=== PATIENT | male | born 1940 | race Caucasian/White ===

== ENCOUNTER → 2017-04-10 | Day surgery (SDC) | payer OTHER, BC ==
[~2017-04-10] VITALS: Ht 180.3 cm; Wt 76.5 kg
[~2017-04-10] MED LIST: AMLO10TA2 PO; ASCA500 PO; ASPI81TA28 PO; B-COCAP28 PO; CEFAZOLIN 1000MG/55 ML D5W IV SCH; CHOL100010 PO; CINA0.42 PO; CLOP1TAB5 PO; D5W AND 1/4NSS 1,000 ML IV SCH; FENTANYL CITRATE INJ 50 MCG/1 ML 2 ML VIAL IV ONE; FENTANYL CITRATE INJ 50 MCG/1 ML 2 ML VIAL ONE; GARL400T4 PO; GARL400T5 PO; HEPARIN SOD (PORCINE) 5000 UNIT/ML 1 ML VIAL ONE; HMLI SC; HydrALAZINE HCL 20 MG/ML VIAL IV. ONE; HydrALAZINE HCL 20 MG/ML VIAL ONE; INSDGI SC; LATA0.009 OPB; LCTS240 PO; LIDOCAINE HCL 1% 20 ML VIAL INJ ONE; LISI-729 PO; LPR25 PO; MELA1TAB3 PO; MELA1TAB5 PO; MIDAZOLAM HCL 1 MG/ML 2ML VIAL IV ONE; MIDAZOLAM HCL 1 MG/ML 2ML VIAL ONE; NTRGSL/4 UT; OMEG10007 PO; OXYC-57 PO; OXYCODONE/ACETAMINOPHEN 5-325 TAB PO PRN; PANT1TAB48 PO; POLY1SOL6 OPB; SENN-61 PO; SEVE800T7 PO; [UNRECOGNIZED DRUG - CODE] OPB
[2017-04-10 09:45] VITALS: BP 145/61; PULSE 67; TEMP 37; O2SAT 98; Ht 180.3 cm; Wt 76.5 kg
--- NOTE | 2017-04-10 10:47 | History and Physical ---
History & Physical Date of Service Apr 10, 2017. History & Physical Chief Complaint: malfunctioning LUE AVF History of Present Illness The patient is a 77 year old male with hx of DMII and ESRD on HD, seen today d/ t malfunctioning LUE AVF at HD. Per pt and staff, his AVF has been having decreasing flows and they are concerned about the AVF. Has been able to run normally until recently. Pt states AVF created at [facility]. Denies ADAMS, fever , chills, chest pain, SOB, abd pain, N/V, rest pain, claudication. Allergies Coded Allergies: Clindamycin (Unverified Allergy, Unknown, UNKNOWN, 03/05/15) Clonidine (Unverified Allergy, Unknown, UNKNOWN, 03/05/15) Lovastatin (Unverified Allergy, Unknown, UNKNOWN, 03/05/15) Simvastatin (Unverified Allergy, Unknown, UNKNOWN, 03/05/15) Sulfamethoxazole w/Trimethoprim (Unverified Allergy, Unknown, UNKNOWN, ) Terazosin (Unverified Allergy, Unknown, UNKNOWN, 03/05/15) Valsartan (Unverified Allergy, Unknown, UNKNOWN, 03/05/15) Surgical / Medical History Hx Cardiac Surgery: No Hx Abdominal Surgery: Yes Hx Cancer Surgery: No Hx Orthopedic: No Past Medical/Surgical History: Diabetes, Kidney Disease Family History Noncontributory ROS - Vascular H&P Review of Systems Review of Systems Constitutional: No chills, No fever, No malaise Skin: No change in color Eyes: No visual changes ENMT: No sore throat Respiratory: No cough, No LORENZ, No hemoptysis, No short of breath Cardiovascular: No chest pain, No palpitations, No syncope, No edema, No intermittent claudication Gastrointestinal: No abdominal pain, No diarrhea, No nausea, No vomiting Neurologic: No dizziness, No headache, No lethargy, No numbness, No tingling Physical Ex - Vascular H&P Physical Exam Physical Exam: Constitutional: General Apperance: heathly-appearing, well-nourished, well-developed Level of Distress: NAD Ambulation: ambulating normally Psychiatric: Mental Status: active & alert, normal mood, normal affect Orientation: oriented except where noted, to time, to place, to person Memory: recent memory normal, remote memory normal Head: normocephalic, atraumatic Eyes: EOM: EOMI Neck: supple, trachea midline Lungs: Respiratory effort: no dyspnea Auscultation: breath sounds normal, no wheezing, no rales/crackles, no rhonchi Cardiovascular: Apical Impulse: not displaced Heart Auscultation: RRR, no murmurs, no rubs, no gallops Peripheral Pulses: Pulses: full and equal, in all extremities except if noted Bruits: none appreciated Carotid Pulse: normal on the left, normal on the right Brachial Pulses: normal on the left, normal on the right Radial Pulse: normal on the left, normal on the right Femoral Pulse: normal on the left, normal on the right Posterior Tibialis Pulse: decreased on the left, decreased on the right Dorsalis Pedis Pulse: decreased on the left, decreased on the right Abdomen: Bowel Sounds: normal Inspection & Palpation: soft, non-distended, no tenderness, guarding & rebound Musculoskeletal: normal strength (5/5 throughout), normal tone Extremities: Upper Right: no cyanosis, no edema, no varicosities Upper Left: no cyanosis, no edema, no varicosities Lower Right: no cyanosis, no edema, no varicosities, pertinent finding (R great toe surgically absent) Lower Left: no cyanosis, no edema, no varicosities Neurologic: Cranial Nerves: grossly intact Sensation: grossly intact A&P - Vascular H&P Assessment and Plan ASSESSMENT and PLAN: Malfunctioning LUE AVF ESRD on HD Pt admitted for LUE fistulagram with intervention today. Procedure, risks , benefits, and alternatives discussed [facility] pt, who expresses understanding and agreement Patient was seen, examined, and chart reviewed. Agree with exam and treatment plan of the Vascular PA. I have discussed the risks options and benefits of the procedure with the patient. The patient understands the risks options and benefits and agrees to the procedure.
--- NOTE | 2017-04-10 11:40 | Procedure Note ---
Pre-Mod Sedation Assessment General Date of Moderate Sedation: Apr 10, 2017. Vital Signs: Vital Signs Past 12 Hours Date Time Temp Pulse Resp B/P (MAP) Pulse Ox O2 Delivery O2 Flow Rate FiO2 04/10/17 09:45 37 67 20 145/61 (89) 98 Room Air Pre-Sedation Airway Assessment Oral Cavity: WNL Hx of Sleep Apnea: No Smoking Status: Never Smoker Mallampati Classification: Class I ASA Classification: Class III Notes The planned sedation has been discussed with the patient and consent obtained. I have identified the patient, determined the appropriateness of sedation and have assessed the patient immediately prior to the procedure. All medicine(s) and interventions are by my order.
--- NOTE | 2017-04-10 13:13 | History & Physical Bridge Note ---
H&P Re-Evaluation Bridge Note: I have examined the patient, reviewed the History & Physical and in the interval since the performance of the History & Physical I have noted the following changes of clinical significance: No changes noted
[2017-04-10 13:24] VITALS: BP 145/61; PULSE 67; TEMP 37; O2SAT 98
--- NOTE | 2017-04-10 14:50 | Procedure Note ---
Post-Moderate Sedation Plan General Date of Moderate Sedation Apr 10, 2017. Vital Signs: Vital Signs Past 12 Hours Date Time Temp Pulse Resp B/P (MAP) Pulse Ox O2 Delivery O2 Flow Rate FiO2 04/10/17 13:24 37.0 67 20 145/61 98 Room Air 04/10/17 09:45 37 67 20 145/61 (89) 98 Room Air Review - Discharge Plan Post Moderate Sedation Plan: On clinical assessment, the patient appears to have tolerated the conscious sedation without complications. Patient is recovering as anticipated. Patient will continue to be monitored by nursing and may be discharged when conscious sedation discharge criteria are met.
--- NOTE | 2017-04-10 14:50 | [facility] Post Operative Brief Note ---
Immediate Operative Summary Operative Date Apr 10, 2017. Pre-Operative Diagnosis Malfunctioning LUE AVF ESRD on HD Post-Operative Diagnosis Same Procedure(s) Performed Fistulogram Perm Cath Placement Right Jugular Approach Ultrasound Localization of Right Jugular Vein Fluoroscopy for Comfirmation Moderate Sedation [id number] Wan Sign Hanger Surgeon(s) Teresa Almazan Estimated Blood Loss 4 Findings distal end of fistula occluded, tip of permcath in distal SVC Specimens None Anesthesia Local with conscious sedation Complication(s) None Disposition
--- NOTE | 2017-04-10 14:52 | Discharge Instructions ---
Discharge Instructions Date of Service Apr 10, 2017. Visit Reason for Visit: End Stage Renal Disease,Malfunctioning Fistula Discharge Discharge Diagnosis / Problem: Malfunctioning av fistula Discharge Goals Goal(s): Therapeutic intervention Activity Recommendations Activity Limitations: per Instructions/Follow-up section Exercise/Sports Limitations: rest today, gradually increase as tolerated Shower/Bathe: keep incision dry Call [phone] to schedule a follow up appointment if one not already scheduled. Give this form to the dialysis nurses. MAY USE [facility] FOR DIALYSIS SPECIAL CARE INSTRUCTIONS: Medications: * Continue to take your medications as directed. If you have been given a prescription for Plavix, please fill it immediately and take as directed. Incision Care: * Your puncture site may have some bruising and minor swelling for about one week. * You will have a small dressing covering your puncture site. You may remove the dressing after 24 hours and shower. You may let the warm soapy water run over it, but be sure to dry the puncture site well and keep it dry. * DO NOT IMMERSE THE INCISION IN A TUB/POOL/etc. UNTIL HEALED. * Puncture sites should be kept covered with a band-aid until it begins to heal. Restrictions: * Depending on whether you leg or arm was punctured to access the arteries, you will be required to lay flat, hold your arm still, or both, for about 4 hours after the procedure to prevent bleeding. * Limit your activity for the first 48 hours. You may walk and go up and down steps. Avoid excessive bending or movement at the puncture site. Possible Complications: * Excessive Swelling - after blood flow is improved you may notice increased swelling in the lower legs. This is a normal response. This usually depends on the amount of blockages in the leg, how long they have been there prior to your procedure and how much blood flow was restored. Elevating your legs will help to improve this. Please notify our office ([phone] ) if the swelling does not go away after lying in bed overnight. * Infection/Drainage/Bleeding - Drainage or bleeding from the puncture site should be minimal. If you have excessive bleeding or drainage, call our office ([phone]) right away. * Pain - You may experience some mild pain or soreness at your puncture site. If your pain does not improve, please contact our office ([phone]). Call your doctor and seek emergent treatment if you develop: * Temperature above 101 degrees * Any fever or chills * Any redness or purulent drainage from the puncture site * Any new dusky/blue colored toes or feet with coolness or sharp or aching pain. SKIN IRRITATION: * You may experience some redness and/or swelling in the area where radiation was administered. If any skin irritation occurs, please contact your family physician. FOLLOW UP VISIT: Keep any scheduled doctor appointments. Anesthesia . Post Anesthesia Instructions: If you have had General Anesthesia or IV Sedation: * Do not drive today. * Resume driving when surgeon permits. * Do not make important decisions or sign legal documents today. * Call surgeon for: 1. Temperature elevations greater than 101 degrees F. 2. Uncontrollable pain. 3. Excessive bleeding. 4. Persistent nausea and vomiting. 5. Medication intolerance (nausea, vomiting or rash). * For nausea and vomiting use only clear liquids such as: tea, soda, bouillon until nausea subsides, then gradually increase diet as tolerated. * If you have any concerns or questions, call your surgeon's office. If physician is unavailable and it is an emergency, call 911 or go to the nearest emergency room. . Diet Recommendations Recommended Home Diet: resume previous diet Procedures Procedures Performed: Fistulogram Perm Cath Placement Right Jugular Approach Ultrasound Localization of Right Jugular Vein Fluoroscopy for Comfirmation Moderate Sedation [id number] Pending Studies Studies pending at discharge: no Medical Emergencies . Who to Call and When: Medical Emergencies: If at any time you feel your situation is an emergency, please call 911 immediately. . Non-Emergent Contact Non-Emergency issues call your: Surgeon . . "Provider Documentation" section prepared by Adrian Wan. .
[2017-04-10 15:00] VITALS: BP 171/79; PULSE 81; TEMP 36.5; O2SAT 98
[2017-04-10 15:30] VITALS: BP 161/70; PULSE 78; TEMP 36.6; O2SAT 98
--- NOTE | 2017-05-11 10:56 | DIAGNOSTIC IMAGING REPORT ---
DATE OF PROCEDURE: 04/10/2017 PROCEDURE NOTE PREOPERATIVE DIAGNOSIS: Left arm arteriovenous fistula dysfunction. POSTOPERATIVE DIAGNOSIS: Same. PROCEDURES: Left arm fistulogram, conscious sedation 18 minutes, PermCath right tunneled IJ. SURGEON: Dr. Adrian Wan. TOOLING MANAGER: Dr. Teresa Almazan. ESTIMATED BLOOD LOSS: 4 mL. ANESTHESIA: Conscious sedation plus local. COMPLICATIONS: None. CONDITION: Stable. INDICATIONS: Mr. Frantz Faustin is a 77-year-old gentleman with history of type 2 diabetes and end-stage renal disease on hemodialysis through a left upper extremity AV fistula. He is having difficulties with decreased flows during dialysis. For this reason, he was recommended to undergo a fistulogram. Risks, benefits and alternatives were discussed with the patient and he consented to the procedure. OPERATION AND FINDINGS: PROCEDURE: The patient was taken to the [facility] and placed in supine position. His left arm and chest were prepped and draped in the usual sterile fashion. Safety timeout was performed and the patient and procedure correctly identified. Conscious sedation was administered for a total of 18 minutes. Local anesthesia was used to anesthetize the skin overlying the fistula in the antecubital fossa. A micropuncture needle was used to access the fistula and micropuncture wire through the access needle. This was replaced with a micropuncture sheath. A fistulogram was obtained which showed occlusion of the cephalic vein at the level of the mid humerus. There was a large collateral vein connecting to the basilic vein which was the main outflow for the fistula. There did not appear to be any residual cephalic vein in the upper arm or shoulder region that would be amenable to intervention. In order to confirm this a 0.035 Glidewire was placed through the micropuncture sheath and the micropuncture sheath exchanged for a 5-Bulgarian sheath. A Quick-Cross catheter was placed over the guidewire and into the cephalic vein to the level of the mid humerus. Fistulogram was again obtained and showed occlusion of the cephalic vein in the mid humerus without any reconstitution. The 5-Bulgarian sheath was removed and manual pressure was held over the access site for approximately 5 minutes with good hemostasis. At that time we elected to place a PermCath which the patient had been previously consented for. The right neck and chest were prepped and draped in the usual sterile fashion. A safety timeout was again performed and the patient, procedure and side was correctly identified. Ultrasound was used to assess the patency of the right IJ and appeared to be large and patent. This was accessed with an 18 gauge needle. A guidewire was placed through the needle and down into the IVC. Local anesthesia was used to anesthetize the tract of the procedure catheter. A 11 blade scalpel was used to make a small skin incision several fingerbreadths below the clavicle. The catheter was tunneled from the infraclavicular incision to the IJ access site. A dilator and then peel-away sheath were placed over the wire and into the SVC. Wire was removed and the catheter placed into the peel-away sheath and peel away sheath removed. Images obtained and showed the catheter to be slightly kinked. A guidewire was placed through the venous port of the catheter and used to reposition the catheter slightly. This led to resolution of the kink in the catheter. Both ports aspirated and flushed easily. 1.6 mL of heparinized saline was instilled into each port. The catheter was secured to the chest wall with nylon suture. The small skin incision overlying the IJ access site was closed with 4-0 Vicryl single interrupted sutures. Dermabond skin glue was applied to the IJ access site. A sterile dressing was applied. The patient tolerated the procedure well and was transferred to PACU in stable condition. There were no immediate complications. Dr. Adrian Wan was present for the entire procedure. I, Dr. Wan was present and scrubbed for the entire procedure. CHRIS
== END | disposition home or self-care (01) ==
LOC: C.OR 09:20
PROVIDERS: ATTEND Surgery Vascular Surgery
DX: T82.898A Other specified complication of vascular prosthetic devices, implants and grafts, initial encounter (principal); Y83.1 Surgical operation with implant of artificial internal device as the cause of abnormal reaction of the patient, or of later complication, without mention of misadventure at the time of the procedure; N18.6 End stage renal disease; E11.22 Type 2 diabetes mellitus with diabetic chronic kidney disease; Z99.2 Dependence on renal dialysis; Z88.1 Allergy status to other antibiotic agents; Z88.2 Allergy status to sulfonamides

== ENCOUNTER 2017-04-15 08:16 | Day surgery (SDC) | payer OTHER, BC ==
[2017-04-14 15:25] VITALS: BMI 23.0
[~2017-04-15] VITALS: Ht 180.3 cm; Wt 76.4 kg
--- NOTE | 2017-04-15 06:03 | History and Physical ---
History & Physical Date of Service Apr 15, 2017. History & Physical Chief Complaint: malfunctioning LUE AVF History of Present Illness The patient is a 77 year old male with hx of DMII and ESRD on HD, recently admitted for a fistulogram d/t malfunctioning LUE AVF at HD. Per pt and staff, his AVF has been having decreasing flows and they are concerned about the AVF. Has been able to run normally until recently. Pt states AVF created at [facility]. Found to have a distal occlusion of the outflow vein. Denies ADAMS, fever, chills, chest pain, SOB, abd pain, N/V, rest pain, claudication. Allergies Coded Allergies: Clindamycin (Unverified Allergy, Unknown, UNKNOWN, 03/05/15) Clonidine (Unverified Allergy, Unknown, UNKNOWN, 03/05/15) Lovastatin (Unverified Allergy, Unknown, UNKNOWN, 03/05/15) Simvastatin (Unverified Allergy, Unknown, UNKNOWN, 03/05/15) Sulfamethoxazole w/Trimethoprim (Unverified Allergy, Unknown, UNKNOWN, ) Terazosin (Unverified Allergy, Unknown, UNKNOWN, 03/05/15) Valsartan (Unverified Allergy, Unknown, UNKNOWN, 03/05/15) Surgical / Medical History Hx Cardiac Surgery: No Hx Abdominal Surgery: Yes Hx Cancer Surgery: No Hx Orthopedic: No Past Medical/Surgical History: Diabetes, Kidney Disease Family History Noncontributory Review of Systems Constitutional: No chills, No fever, No malaise Skin: No change in color Eyes: No visual changes ENMT: No sore throat Respiratory: No cough, No LORENZ, No hemoptysis, No short of breath Cardiovascular: No chest pain, No palpitations, No syncope, No edema, No intermittent claudication Gastrointestinal: No abdominal pain, No diarrhea, No nausea, No vomiting Neurologic: No dizziness, No headache, No lethargy, No numbness, No tingling Physical Exam: Constitutional: General Apperance: heathly-appearing, well-nourished, well-developed Level of Distress: NAD Ambulation: ambulating normally Psychiatric: Mental Status: active & alert, normal mood, normal affect Orientation: oriented except where noted, to time, to place, to person Memory: recent memory normal, remote memory normal Head: normocephalic, atraumatic Eyes: EOM: EOMI Neck: supple, trachea midline Lungs: Respiratory effort: no dyspnea Auscultation: breath sounds normal, no wheezing, no rales/crackles, no rhonchi Cardiovascular: Apical Impulse: not displaced Heart Auscultation: RRR, no murmurs, no rubs, no gallops Peripheral Pulses: Pulses: full and equal, in all extremities except if noted Bruits: none appreciated Carotid Pulse: normal on the left, normal on the right Brachial Pulses: normal on the left, normal on the right Radial Pulse: normal on the left, normal on the right Femoral Pulse: normal on the left, normal on the right Posterior Tibialis Pulse: decreased on the left, decreased on the right Dorsalis Pedis Pulse: decreased on the left, decreased on the right Abdomen: Bowel Sounds: normal Inspection & Palpation: soft, non-distended, no tenderness, guarding & rebound Musculoskeletal: normal strength (5/5 throughout), normal tone Extremities: Upper Right: no cyanosis, no edema, no varicosities Upper Left: no cyanosis, no edema, no varicosities Lower Right: no cyanosis, no edema, no varicosities, pertinent finding (R great toe surgically absent) Lower Left: no cyanosis, no edema, no varicosities Neurologic: Cranial Nerves: grossly intact Sensation: grossly intact ASSESSMENT and PLAN: Malfunctioning LUE AVF ESRD on HD Plan: Pt admitted for a revision of his left upper arm fistula. Procedure, risks, benefits, and alternatives discussed wt pt, who expresses understanding and agreement
[~2017-04-15 08:16] MED LIST changes: -AMLO10TA2 PO; -D5W AND 1/4NSS 1,000 ML IV SCH; -FENTANYL CITRATE INJ 50 MCG/1 ML 2 ML VIAL IV ONE; -FENTANYL CITRATE INJ 50 MCG/1 ML 2 ML VIAL ONE; -GARL400T4 PO; -HEPARIN SOD (PORCINE) 5000 UNIT/ML 1 ML VIAL ONE; -HydrALAZINE HCL 20 MG/ML VIAL IV. ONE; -HydrALAZINE HCL 20 MG/ML VIAL ONE; -LIDOCAINE HCL 1% 20 ML VIAL INJ ONE; -MELA1TAB3 PO; -MIDAZOLAM HCL 1 MG/ML 2ML VIAL IV ONE; -MIDAZOLAM HCL 1 MG/ML 2ML VIAL ONE; -OXYC-57 PO; -OXYCODONE/ACETAMINOPHEN 5-325 TAB PO PRN; -POLY1SOL6 OPB; +SODIUM CHLORIDE 0.9% 1000ML IV SCH
[2017-04-15 08:53] VITALS: BP 136/63; PULSE 62; TEMP 37; O2SAT 100; Ht 180.3 cm; Wt 76.4 kg
[2017-04-15 09:03] LABS: INR 1.1 (0.9-1.1); PARTIAL THROMBOPLASTIN RATIO 1.2; PROTHROMBIN TIME (PATIENT) 11.5 SECONDS (9.0-12.0)
[2017-04-15] MEDS ORDERED: FENTANYL CITRATE INJ 50 MCG/1 ML 2 ML VIAL ONE (09:12)
[2017-04-15] MEDS ORDERED: LIDOCAINE HCL 2% 2 ML VIAL (20MG/ML) ONE (09:12)
[2017-04-15] MEDS ORDERED: PROPOFOL IV EMULSION 10 MG/ML 20 ML VIAL IV ONE ×2 (09:12→12:17)
[2017-04-15 09:24] LABS: BUN/CREATININE RATIO 5.5 (10-20); CALCIUM 8.2 mg/dl (8.5-10.1); CREATININE 7.1 mg/dl (0.60-1.40); POTASSIUM 3.4 mmol/L (3.5-5.1)
[2017-04-15] MEDS ORDERED: LIDOCAINE HCL 1% 20 ML VIAL ONE (11:01)
[2017-04-15] MEDS ORDERED: HEPARIN SOD (PORCINE) 1000 UNIT/ML 10 ML VIAL ONE ×2 (11:01→12:31)
[2017-04-15] MEDS ORDERED: GELATIN SPONGE 12-7MM ONE ×2 (11:01→11:02)
[2017-04-15] MEDS ORDERED: THROMBIN FOR SOLN 20000 UNIT KIT ONE ×2 (11:01→11:02)
[2017-04-15] MEDS ORDERED: BUPIVACAINE/EPINEPHRINE 0.25% 1:200,000 30 ML VIAL ONE (11:02)
[2017-04-15] MEDS ORDERED: EpHEDrine SULFATE INJ 50 MG/ML AMP IV PRN (12:30)
[2017-04-15] MEDS ORDERED: ATROPINE SULFATE 0.1 MG/ML 5ML SYR IV PRN (12:30)
--- NOTE | 2017-04-15 13:26 | [facility] Post Operative Brief Note ---
Immediate Operative Summary Operative Date Apr 15, 2017. Pre-Operative Diagnosis malfunctioning Left upper extremity arteriovenous fistula Post-Operative Diagnosis malfunctioning Left upper extremity arteriovenous fistula Procedure(s) Performed Revision of Left Upper Arm Arteriovenous Fistula Surgeon Dr. Wan Boarding House Manager Surgeon(s) Teresa Almazan-Resident, Es Motley,PAC Estimated Blood Loss 40 ml Findings good thrill Specimens None per surgeon Anesthesia MAC Complication(s) None Disposition Recovery Room / PACU
[2017-04-15] MEDS ORDERED: OXYC-57 PO (13:28)
--- NOTE | 2017-04-15 13:30 | Discharge Instructions ---
Discharge Instructions Date of Service Apr 15, 2017. Visit Reason for Visit: End Stage Renal Disease Discharge Discharge Diagnosis / Problem: Malfunctioning arteriovenous fistula Discharge Goals Goal(s): Therapeutic intervention Activity Recommendations Activity Limitations: resume your previous activity Lifting Limitations: none Exercise/Sports Limitations: none Anesthesia . Post Anesthesia Instructions: If you have had General Anesthesia or IV Sedation: * Do not drive today. * Resume driving when surgeon permits. * Do not make important decisions or sign legal documents today. * Call surgeon for: 1. Temperature elevations greater than 101 degrees F. 2. Uncontrollable pain. 3. Excessive bleeding. 4. Persistent nausea and vomiting. 5. Medication intolerance (nausea, vomiting or rash). * For nausea and vomiting use only clear liquids such as: tea, soda, bouillon until nausea subsides, then gradually increase diet as tolerated. * If you have any concerns or questions, call your surgeon's office. If physician is unavailable and it is an emergency, call 911 or go to the nearest emergency room. . Instructions / Follow-Up Instructions / Follow-Up Take this form to dialysis and give it to the staff: May use fistula for dialysis Call [phone] to schedule a follow up appointment if one not already scheduled. ACTIVITY RECOMMENDATIONS: See Above SPECIAL CARE INSTRUCTIONS: Call your doctor if: * Temperature above 101 degrees * Pain not relieved by pain medicine ordered * There is increased drainage or redness from any incision * You have any unanswered questions or concerns. Diet Recommendations Recommended Home Diet: resume previous diet Procedures Procedures Performed: Revision of Left Upper Arm Arteriovenous Fistula Pending Studies Studies pending at discharge: no Medical Emergencies . Who to Call and When: Medical Emergencies: If at any time you feel your situation is an emergency, please call 911 immediately. . Non-Emergent Contact Non-Emergency issues call your: Surgeon . . "Provider Documentation" section prepared by Adrian Wan. .
--- NOTE | 2017-04-15 14:03 | Anesthesiology Progress Note ---
Anesthesia Post Op Note Date & Time Apr 15, 2017 at 14:03 Vital Signs Pain Intensity: 0 Vital Signs Past 12 Hours Date Time Temp Pulse Resp B/P (MAP) Pulse Ox O2 Delivery O2 Flow Rate FiO2 04/15/17 13:50 71 22 134/58 97 Room Air 04/15/17 13:41 36.4 71 18 116/55 98 Room Air 04/15/17 08:53 37 62 20 136/63 (87) 100 Room Air Notes Mental Status: alert / awake / arousable, participated in evaluation Pt Amnestic to Procedure: Yes Nausea / Vomiting: adequately controlled Pain: adequately controlled Airway Patency, RR, SpO2: stable & adequate BP & HR: stable & adequate Hydration State: stable & adequate Anesthetic Complications: no major complications apparent
[2017-04-15 14:15] VITALS: BP 114/57; PULSE 76; TEMP 37; O2SAT 91
[2017-04-15 14:45] VITALS: BP 125/85; PULSE 71; TEMP 37.1; O2SAT 94
--- NOTE | 2017-04-15 15:45 | [facility] Operative Report ---
Operative Report Operative Date Apr 15, 2017. Pre-Operative Diagnosis Malfunctioning left upper extremity arteriovenous fistula Post-Operative Diagnosis Malfunctioning left upper extremity arteriovenous fistula Procedure(s) Performed Revision of left upper extremity arteriovenous fistula with basilic vein transposition. Surgeon Dr. Adrian Wan Transition Lead Surgeon(s) Dr. Teresa Almazan and Es Whaley, PAC Estimated Blood Loss 40 ml Findings Large-caliber cephalic vein. Significant amount of thrombus within the cephalic vein. Appropriately sized basilic vein. Palpable thrill and fistula close the case. Specimens None per surgeon Anesthesia MAC and local Complication(s) None Disposition Recovery Room / PACU Indications Mr. Frantz Faustin is a 77 year old male with hx of DMII and ESRD on HD, recently admitted for a fistulogram due to malfunctioning LUE AVF at HD. Per the pateint and staff, his AVF has been having decreasing flows and they are concerned about the AVF. Has been able to run normally until recently. Pt states AVF created at [facility]. Found to have a distal occlusion of the outflow vein. For this reason he was recommended to undergo revision of his fistula. The risks benefits and alternatives were discussed with the patient and consent the procedure. Description of Procedure The patient was taken to the operating room and placed in the supine position. His left arm and shoulder were prepped and draped in the usual sterile fashion. A safety timeout was performed and the patient, procedure, and sided numbness or correctly identified. The fistula had a palpable pulse in the upper cephalic vein. Local anesthesia was injected into the subcutaneous tissue overlying the cephalic vein at the level of the mid humerus. Skin incision made within 15 blade scalpel. Subcutaneous tissues were divided with Bovie electrocautery. The very large caliber cephalic vein was identified and dissected circumferentially. A vessel loop was placed around the large cephalic vein. We then turned our attention to the basilic vein. A sterile ultrasound probe was used to identify the basilic vein. Local anesthesia was used to anesthetize the skin overlying the basilic vein. Moderate digital incision was made with a [address] solorio was used to dissect subcutaneous tissues. The basilic vein was identified in the upper arm. It was dissected circumferentially. Small side bridges were ligated with suture. The vein was transected just proximal to the antecubital fossa. The vein was distended with heparinized saline and appeared to be of adequate caliber. Local anesthesia was used to anesthetize the area which would be our tunnel. An aortic clamp was used to connect the incision overlying the cephalic vein to the proximal aspect of the basilic vein incision. The basilic vein was tunneled without difficulty. The cephalic vein was clamped however due to its large caliber there is difficulty in placing the clamp. A venotomy was made in the cephalic vein using an 11 blade scalpel. This was extended with pot scissors. A large amount of thrombosis appreciated in the cephalic vein. Some of the thrombus was able to be milked out of the vein. Additional thrombus was removed with a combination of suction and DeBakey forceps. A #7 Melissa catheter was placed through the venotomy and down the cephalic vein distally. It was pulled back and there was no residual thrombus. There was good arterial bleeding from the fistula. We had difficulty in replacing the clamp so the #7 Melissa was again passed distally down the cephalic vein and used for control. The basilic vein was anastomosed to the cephalic vein and an end-to-side fashion with 5-0 Prolene suture in a running continuous fashion. Prior to completion of the anastomosis, both veins were backbled. The anastomosis appeared hemostatic. Both wounds were irrigated and small areas of bleeding were controlled with electrocautery. Subcutaneous tissues were reapproximated with 3-0 Vicryl and a running fashion. Skin was reapproximated with 4-0 Vicryl in a running subcuticular fashion. Dermabond skin glue was applied over both incision. The patient was awakened and transferred to the PACU in stable condition. He tolerated the procedure well and there were no immediate complications. Dr. Adrian Wan was present for the entire procedure. I, Dr. Wan was present and scrubed for the entire procedure. I attest to the content of the Intraoperative Record and any orders documented therein. Any exceptions are noted below.
== END 2017-04-15 15:00 | disposition home or self-care (01) ==
LOC: C.ACU 08:16
PROVIDERS: ATTEND Surgery Vascular Surgery
DX: T82.898A Other specified complication of vascular prosthetic devices, implants and grafts, initial encounter (principal); Y84.8 Other medical procedures as the cause of abnormal reaction of the patient, or of later complication, without mention of misadventure at the time of the procedure; N18.6 End stage renal disease; J45.909 Unspecified asthma, uncomplicated; I12.0 Hypertensive chronic kidney disease with stage 5 chronic kidney disease or end stage renal disease; Z86.718 Personal history of other venous thrombosis and embolism; E11.9 Type 2 diabetes mellitus without complications; Z88.1 Allergy status to other antibiotic agents; Z99.2 Dependence on renal dialysis